=== PATIENT | male | born 1975 | race Caucasian/White ===

== ENCOUNTER 2022-10-27 10:55 | Outpatient (CLI) | payer OTHER, SELFPAY ==
--- NOTE | 2022-10-27 10:27 | EST_ITS ---
Patient Info Name: Dariusz Kelly Age: 47 years : 1975 Gender: Male Ht: 72 in Wt: 220 lbs BSA: 2.27 m2 HR: 64 bpm BP: 124 / 82 mmHg Heart Rhythm: Sinus Rhythm Exam Date: 10/27/2022 11:37 AM Exam Location: [facility] Stress Patient Status: Outpatient Admit Date: 10/27/2022 Staff Ordering Physician: Kacy Hunter NP Attending Provider: Kacy Hunter NP Exercise Technologist: Dorina Acevedo CT Exercise Physician: Handy Downey DO Exam Type: CA stress test treadmill Study Info Indications R55 - Syncope and collapse A treadmill exercise stress test was performed. Summary 1. 1. Negative Fredy exercise stress test for ischemic ST changes by ECG criteria. 2. 2. Good functional capacity, achieving 10.9 METs of workload. 3. 3. Appropriate HR response to exercise. 4. 4. Appropriate HR recovery at 1 minute post exercise. 5. 5. No imaging with stress testing. 6. 6. Patient informed of the above results. Protocol: Fredy Stress ECG Details Stage: REST Duration (min): 1 min : 13 sec Speed (mph): 0.0 Grade (%): 0 HR (bpm): 64 SBP (mmHg): 124 DBP (mmHg): 82 METS: --- Stage: REST Duration (min): 9 min : 26 sec Speed (mph): 0.0 Grade (%): 0 HR (bpm): 66 SBP (mmHg): 124 DBP (mmHg): 82 METS: --- Stage: STAGE 1 Duration (min): 1 min : 0 sec Speed (mph): 1.7 Grade (%): 10 HR (bpm): 83 SBP (mmHg): 124 DBP (mmHg): 82 METS: --- Stage: STAGE 1 Duration (min): 2 min : 0 sec Speed (mph): 1.7 Grade (%): 10 HR (bpm): 86 SBP (mmHg): 124 DBP (mmHg): 82 METS: --- Stage: STAGE 1 Duration (min): 3 min : 0 sec Speed (mph): 1.7 Grade (%): 10 HR (bpm): 79 SBP (mmHg): 135 DBP (mmHg): 89 METS: --- Stage: STAGE 2 Duration (min): 1 min : 0 sec Speed (mph): 2.5 Grade (%): 12 HR (bpm): 87 SBP (mmHg): 135 DBP (mmHg): 89 METS: --- Stage: STAGE 2 Duration (min): 2 min : 0 sec Speed (mph): 2.5 Grade (%): 12 HR (bpm): 91 SBP (mmHg): 146 DBP (mmHg): 101 METS: --- Stage: STAGE 2 Duration (min): 3 min : 0 sec Speed (mph): 2.5 Grade (%): 12 HR (bpm): 92 SBP (mmHg): 146 DBP (mmHg): 101 METS: --- Stage: STAGE 3 Duration (min): 1 min : 0 sec Speed (mph): 3.4 Grade (%): 14 HR (bpm): 110 SBP (mmHg): 146 DBP (mmHg): 101 METS: --- Stage: STAGE 3 Duration (min): 2 min : 0 sec Speed (mph): 3.4 Grade (%): 14 HR (bpm): 126 SBP (mmHg): 229 DBP (mmHg): 81 METS: --- Stage: STAGE 3 Duration (min): 3 min : 0 sec Speed (mph): 3.4 Grade (%): 14 HR (bpm): 138 SBP (mmHg): 184 DBP (mmHg): 66 METS: --- Stage: STAGE 4 Duration (min): 0 min : 25 sec Speed (mph): 4.2 Grade (%): 16 HR (bpm): 145 SBP (mmHg): 184 DBP (mmHg): 66 METS: ---
== END 2022-10-27 10:56 | disposition home or self-care (01) ==
PROVIDERS: PCP Family Medicine; Visit Provider Nurse Practitioner Family
DX: R55 Syncope and collapse (principal)
CPT/HCPCS: 36415; 80053; 80061; 84443; 85025; 93017

== ENCOUNTER 2022-10-27 12:31 | Outpatient (CLI) | payer OTHER, SELFPAY ==
[2022-10-27 18:17] LABS: Basophils Absolute Auto 0.1 K/mm3 (0.0-0.1); Eosinophils Absolute Auto 0.4 K/mm3 (0-0.3); Eosinophils Percent Auto 3.7 % (0-4.4); Hematocrit 43.1 % (42.0-52.0); Hemoglobin 14.7 g/dL (14.0-18.0); Immature Granulocyte Absolute 0.03 K/mm3 (0.00-0.031); Immature Granulocyte Percent A 0.3 % (0-0.5); Lymphocytes Absolute Auto 2.54 K/mm3 (0.9-3.2); Lymphocytes Percent Auto 24.7 % (18.3-44.2); Mean Corpuscular HGB Conc 34.1 g/dl (32-36); Mean Corpuscular Hemoglobin 30.9 pg (26-34); Mean Corpuscular Volume 90.7 fl (80-100); Mean Platelet Volume 10.5 fl (7.4-10.4); Monocytes Absolute Auto 1.1 K/mm3 (0.1-0.6); Monocytes Percent Auto 10.7 % (2.6-8.5); Neutrophils Absolute Auto 6.1 K/mm3 (1.3-6.7); Neutrophils Percent Auto 59.6 % (45.5-73.1); Platelet Count Result 256 k/mm3 (150-375); Red Blood Count 4.75 M/mm3 (4.6-6.20); Red Cell Distribution Width 12.7 % (11.5-14.5); White Blood Count 10.3 K/mm3 (4.5-10.0)
[2022-10-27 18:59] LABS: Alanine Aminotransferase 20 U/L (6-50); Albumin Level 4.3 g/dL (3.5-5.1); Alkaline Phosphatase 67 U/L (38-126); Anion Gap 6 mmol/L (8-16); Aspartate Amino Transferase 23 U/L (17-59); Bilirubin,Total 0.6 mg/dL (0.2-1.3); Blood Urea Nitrogen 11 mg/dL (9-20); Carbon Dioxide 30 mmol/L (22-30); Chloride 99 mmol/L (98-107); Cholesterol 248 mg/dL (0-200); Estimated Glomerular Filt Rate > 60; Glucose 95 mg/dL (65-110); HDL Direct 62 mg/dL; Potassium 3.8 mmol/L (3.4-5.0); Sodium 135 mmol/L (137-145); Triglycerides 215 mg/dL (<150)
[2022-10-27 19:09] LABS: LDL Cholesterol Direct 143 mg/dL
== END 2022-10-27 12:32 | disposition home or self-care (01) ==
LOC: ANHGOSHLAB 12:33
PROVIDERS: PCP Family Medicine; Visit Provider Nurse Practitioner Family
DX: R55 Syncope and collapse (principal); Z13.220 Encounter for screening for lipoid disorders
CPT/HCPCS: 36415; 80053; 80061; 84443; 85025

== ENCOUNTER 2022-11-30 11:34 | Outpatient (CLI) | payer OTHER, SELFPAY ==
--- NOTE | ~2022-11-30 | XR_ITS ---
Lumbosacral Spine: AP and lateral views Clinical History: Pain Findings: The normal lordotic curve is maintained. No fracture seen. There is moderate degenerative d isc narrowing at L5-S1. There is minimal grade 1 retrolisthesis of L5 over S1. The sacroiliac joints are normally outlined. Impression: Minimal grade 1 retrolisthesis of L5 over S1. Degenerative disc narrowing at L5-S1. Reviewed, dictated and finalized at location . Impression: Minimal grade 1 retrolisthesis of L5 over S1. Degenerative disc narrowing at L5-S1.
== END 2022-11-30 11:35 | disposition home or self-care (01) ==
PROVIDERS: PCP Family Medicine; Visit Provider Nurse Practitioner Family
DX: M54.16 Radiculopathy, lumbar region (principal)
CPT/HCPCS: 72100

== ENCOUNTER 2023-02-14 16:01 | Outpatient (CLI) | payer OTHER, SELFPAY ==
--- NOTE | ~2023-02-14 | XR_ITS ---
EXAM: XR lumbar spine 6V w bending DATE: 02/14/2023 16:31 HISTORY: known spondylolisthesis . COMPARISON: 11/30/2022. FINDINGS: 5 nonrib-bearing lumbar-type vertebral bodies. No pars defect. Pedicles intact. Grade 1 re trolisthesis at L1-2 and L5-S1, both reduce slightly in flexion. Stable mild anterior wedge deformity of multiple vertebral bodies at the thoracolumbar junction, may be physiologic. Multilevel disc spac e narrowing and marginal osteophytosis, severe at L5-S1. Multilevel mild lower lumbar facet sclerosis . No fracture or dislocation. IMPRESSION: Dynamic grade 1 retrolistheses at L1-2 and L5-S1. Severe degenerative disc disease at L5- S1. Reviewed, dictated and finalized at location K. IMPRESSION: Dynamic grade 1 retrolistheses at L1-2 and L5-S1. Severe degenerati ve disc disease at L5-S1.
== END 2023-02-14 16:02 | disposition home or self-care (01) ==
PROVIDERS: PCP Family Medicine; Visit Provider Anesthesiology Pain Medicine
DX: M43.17 Spondylolisthesis, lumbosacral region (principal); M47.817 Spondylosis without myelopathy or radiculopathy, lumbosacral region; M51.37 Other intervertebral disc degeneration, lumbosacral region
CPT/HCPCS: 72114

== ENCOUNTER 2023-02-26 14:30 | Outpatient (RCR) | payer OTHER, SELFPAY ==
--- NOTE | 2023-01-04 08:46 | PTOPEVAL1 ---
Assessment and note entered by Carissa Diaz, PT Evaluation Information Assessment Status Evaluation Diagnosis dorsalgia, spondylosis, spondylolisthesis, radiculopathy Subjective Information Has broken back several times, has had pain at least 17 years. 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 Pain management Dr. Limon. Was referred to therapy and provided Tramadol. Was loosing consciousness, went to emergency room and reports person there said his pain was causing loss of consciousness. Reports the hand upside down machine states this works sometimes but then as soon as does something pain returns. Laying flat makes pain feel better. reports thinking the cardiogenic syncope came on because of his pain. Reported Pain Level Pain Score 6: Self Report Additional Pain Score Comments stepping down to hard, pushing brakes to quick/ hard, climbing down steps that are tall all increase pain Assessment PT Clinical Summary Pt presents w/ history of back pain and multiple related diagnosis. Evaluation pt is listless and moving/shifting often, diaphoretic at rest, demo's abnormal gait pattern appearing guarded with motion. Demos decreased lumbopelvic strength of gluteal musculature and poor core strength and awareness. Pt also demo's abnormal postures and curvature of the spine in sitting and standing. Presentation also suggestive of lumbar and lumbosacral instability. Thus patient will benefit from physical therapy to address deficits, educate patient in appropriate muscle awareness/ activation, postural changes, improve gait, decrease pain and improve function. Plan of Care Interventions Electrical Stimulation,Gait Training,Hot Pack/Cold Pack,Manual Therapy,Neuro Re-education,Patient/ Caregiver Educati,Therapeutic Activities, Therapeutic Exercise PT Services Indicated Yes Treatment Frequency and 2x weekly x 4 weeks. Duration These treatments will address the objective and functional deficits as defined above. The patient will be advanced safely and appropriately in order for the patient to progress towards his/her prior level of function. Additional exercises will be introduced and as well as a comprehensive home exercise program upon discharge, if needed, ?to ensure carryover of functional gains achieved in the clini
--- NOTE | 2023-01-04 08:46 | OPREHPOC ---
Outpatient Therapy Plan of Care This is a Multidisciplinary Plan of Care that may contain components documented by all disciplines (PT, OT, and ST.) PT Problem 1 PT Problem #1 Knowledge Deficit PT Goal 1 Goal Pt will be indpendent in in home exercise program Target Visit 8 PT Goal 2 Goal Pt will verbalize understanding of importance of posture in improving discomfort. Target Visit 8 PT Problem 2 PT Problem #2 Pain PT Goal 1 Goal Pt will report lowest rating at 0/10 Target Visit 8 PT Goal 2 Goal Pt will report greatest pain at 5/10 Target Visit 8 PT Problem 3 PT Problem #3 Impaired Gait PT Goal 1 Goal Pt will demo improved gait with less guarding Target Visit 8 PT Problem 4 PT Problem #4 Impaired Strength PT Goal 1 Goal Pt will demo 4/5 bilat LEs Target Visit 8
--- NOTE | 2023-01-31 16:49 | PTOPPROG ---
Assessment and note entered by Carissa Diaz, PT Assessment Status Progress Report Diagnosis dorsalgia, spondylosis, spondylolisthesis, radiculopathy Subjective Information Pt reports end of last week and this weekend was pretty bad. Hasn't been shea to sit up much, just laying flat on his back. States when he would hurt whenever he would move. Has not recieved brace yet, is waiting for insurance to approve it. Has not tried to use ice or did his exercises tihs weekend to try to fix this. Reports when he is in these episodes he isn't cognitive about fixing issues. States is also having pain in his head with coughing and sneezing, states is waiting for neurology consult for this. Pt reports left knee 'popped out of socket going down the stairs the other day. States it goes back in on it's own. States this has happened before, knee swelled up really big then got better. Assessment PT Clinical Summary Pt presents with complaints of back pain. During therapy sessions, pt has been improving in tolerance of exercises however during formal testing today he reports he's had a bad weekend and increased pain. Pt mobility and presentation inconsistent with verbal reports during today's session as demo'd by heart rate remaining below 80 BPM during evaluation and upon sitting. Also hand held dynamometer testing inconsistencies and cogwheeling with muscle testing not seen previously suggestive of pt effort deficit today. Pt also may not understand the numerical pain rating system as reports of other injuries suggest decreased knowledge of musculoskeletal workings and injury. Thus it is difficult to assess in this progress note pt progress overall. Prior daily notes suggest some improvements being made overall and pt reports back brace he tried on improved his pain significantly. Presentation cont to demo instability type deficits, thus pt will benefit from continued therapy for a time to attempt to increase strengthening and stability exercises to improve discomfort and function. Plan of Care Interventions Electrical Stimulation,Gait Training,Hot Pack/Cold Pack,Manual Therapy,Neuro Re-education,Patient/
--- NOTE | 2023-02-08 15:03 | PCPTNOTE ---
Patient's called & cancelled scheduled appointment this date due to pt not doing well today .
--- NOTE | 2023-02-23 14:47 | PCPTNOTE ---
Patient's called & cancelled 25 min prior to scheduled appointment this date stating pt had just had a syncopal episode and didn't feel well. This is patient's third cancellation.
--- NOTE | 2023-02-26 15:35 | PTOPDC ---
Assessment and note entered by Carissa Diaz, PT Assessment Status Discharge Diagnosis dorsalgia, spondylosis, spondylolisthesis, radiculopathy Subjective Information Pt reports Dr. Limon states could do a sqvy-oh-csik for his brace. Reports Dr. Limon said that when patient turns his vertebra come apart . Reports thinks brace will be helpful with riding in vehicles so is not jarring me all the time and with sitting upright. Pt reports wasn't able to get out of bed Sunday which is why he missed therapy because of the pain . When I loose consciousness I start falling down . Self-perceived improvement: doesn't give a percent , feels like it's getting worse. States he feels like he is using muscle mass. States has been about the same. Reports he starts doing things, when pain comes then I get all white, loose blood pressure in my legs Reports didn't wear pressure stockings today , states usually wears them when comes to therapy. Reports when does his exercises (pelvic tilts) his hip is dislocating itself in the middle, no left or right but that when he lays flat it pops back in . Reported Pain Level Pain Score 7: Self Report Assessment PT Clinical Summary Pt has only attended therapy 50% of the time this second plan of care. Demo's improved lumbar ROM overall with formal and observation in [facility]. However Evaluation shows inconsistencies with formal ROM testing and pt mobility compared to formal testing. Pt does continue to demo strength and stability deficits, gait abnormalities at times, and reports of feeling feint. Pt would benefit from continued strengthening if was able to participate consistently and with full effort but is currently limited due to reports of pain and syncope. Thus pt is being dischargd from therapy at this time due to lack of significant progress.
== END 2023-02-26 15:39 | disposition home or self-care (01) ==
LOC: ANHHIPT 14:30
PROVIDERS: PCP Family Medicine; Visit Provider Anesthesiology Pain Medicine
DX: M54.9 Dorsalgia, unspecified (principal); M47.817 Spondylosis without myelopathy or radiculopathy, lumbosacral region; M43.17 Spondylolisthesis, lumbosacral region; M54.16 Radiculopathy, lumbar region
CPT/HCPCS: 97014; 97110; 97140; 97162; 97750; G0283

== ENCOUNTER 2023-11-15 12:42 | Outpatient (CLI) | payer OTHER, SELFPAY ==
[2023-11-15 13:12] LABS: Basophils Absolute Auto 0.1 K/mm3 (0.0-0.1); Eosinophils Absolute Auto 0.4 K/mm3 (0-0.3); Eosinophils Percent Auto 3.1 % (0-4.4); Hematocrit 42.7 % (42.0-52.0); Hemoglobin 14.7 g/dL (14.0-18.0); Immature Granulocyte Absolute 0.04 K/mm3 (0.00-0.031); Immature Granulocyte Percent A 0.3 % (0-0.5); Lymphocytes Absolute Auto 3.03 K/mm3 (0.9-3.2); Lymphocytes Percent Auto 26.5 % (18.3-44.2); Mean Corpuscular HGB Conc 34.4 g/dl (32-36); Mean Corpuscular Hemoglobin 30.9 pg (26-34); Mean Corpuscular Volume 89.9 fl (80-100); Mean Platelet Volume 9.9 fl (7.4-10.4); Monocytes Absolute Auto 1.4 K/mm3 (0.1-0.6); Monocytes Percent Auto 11.9 % (2.6-8.5); Neutrophils Absolute Auto 6.5 K/mm3 (1.3-6.7); Neutrophils Percent Auto 57.2 % (45.5-73.1); Platelet Count Result 285 k/mm3 (150-375); Red Blood Count 4.75 M/mm3 (4.6-6.20); Red Cell Distribution Width 12.5 % (11.5-14.5); White Blood Count 11.4 K/mm3 (4.5-10.0)
[2023-11-15 13:26] LABS: Alanine Aminotransferase 17 U/L (6-50); Albumin Level 4.9 g/dL (3.5-5.1); Alkaline Phosphatase 78 U/L (38-126); Anion Gap 8 mmol/L (4-12); Aspartate Amino Transferase 23 U/L (17-59); Bilirubin,Total 0.8 mg/dL (0.2-1.3); Blood Urea Nitrogen 8 mg/dL (9-20); Calcium 9.7 mg/dL (8.4-10.2); Carbon Dioxide 28 mmol/L (22-30); Chloride 103 mmol/L (98-107); Cholesterol 235 mg/dL (0-200); Estimated Glomerular Filt Rate > 60; Glucose 97 mg/dL (65-110); HDL Direct 53 mg/dL; Potassium 4.1 mmol/L (3.4-5.0); Sodium 139 mmol/L (137-145); Triglycerides 169 mg/dL (<150)
[2023-11-15 13:37] LABS: LDL Cholesterol Direct 152 mg/dL
[2023-11-15 14:17] LABS: Thyroid Stimulating Hormone Reflex 0.885 uIU/mL (0.465-4.68)
== END 2023-11-15 12:43 | disposition home or self-care (01) ==
LOC: ANHLAB 12:43
PROVIDERS: PCP Family Medicine; Visit Provider Internal Medicine Cardiovascular Disease
DX: R55 Syncope and collapse (principal)
CPT/HCPCS: 36415; 80053; 80061; 84443; 85025

== ENCOUNTER 2024-07-23 01:34 | Day surgery (SDC) | payer OTHER, SELFPAY ==
[2024-06-30 15:10] VITALS: BMI 33.6
[2024-07-23 08:48] VITALS: BP 130/82; PULSE 85; RESP 18; TEMP 36.2; O2SAT 99
[2024-07-23] MEDS: LACTATED RINGERS 1,000 ML 150 ML IV CONT (08:59)
--- NOTE | 2024-07-23 09:37 | PM.IMHP ---
H&P: HPI History of Present Illness Date/Time: 07/23/24 09:37 Chief Complaint: Screening colonoscopy Narrative: This is the patient's first colonoscopy. There are no GI symptoms and there is no family history of colorectal cancer. Review of Systems Review of Systems: All systems reviewed & are unremarkable except as noted in HPI and below PMFSH Past Medical History Medical History Asthma DDD (degenerative disc disease) Depression Former smoker Quit 10/2019 Mixed hyperlipidemia Neurocardiogenic syncope Neurogenic orthostatic hypotension Peripheral neuropathy Surgical History Surgical History H/O lumpectomy (~2020) back History of placement of ear tubes Social History Social History Social History: , lives with and daughter. HVAC worker. Smoking packs per day: 1 Smoking cigarettes per day: 20.0 Years smoked: 20 Smoking pack-years: 20.00 Smoking status: Former smoker Tobacco type: cigarettes Smoking end date: 10/21/19 Alcohol intake: unknown Substance use: current Substance use type: marijuana Other substance usage details: edible daily for pain Do You Feel Safe in your Home?: Yes Lack of Transportation: YES Lack of Food: Sometimes True Current Housing: I Have Housing Concerned About Future Housing: YES Difficulty Paying Gas/Electric Bills: YES Difficulty Paying for Meds: YES Currently Unemployed: No Education: Trade/Vocational Certificate Difficulty w/ Childcare or Family Care: No Living arrangements: with family Occupation/Education: unemployed Gender identity (if verbalized by the patient): Male Sexual Orientation (if Verbalized by the Patient): Straight or Heterosexual Spiritual care concerns: No Agree to blood products: Yes Meds Home Medications and Allergies Home Medications ?Medication ?Instructions ?Recorded ?Confirmed ?Type comp.stocking,thigh,long,large #6 ea 11/01/22 05/06/24 Rx diclofenac sodium 1 % topical gel 4 g topical QID PRN low back pain 12/19/22 06/30/24 Rx #5 tubes atorvastatin 40 mg tablet 40 mg PO DAILY #90 tabs 11/15/23 07/23/24 Rx fludrocortisone 0.1 mg tablet See Rx Instructions .Route 03/18/24 07/23/24 Rx .COMPLEX #30 tabs midodrine 10 mg tablet See Rx Instructions .Route 03/18/24 07/23/24 Rx .COMPLEX #90 tabs trazodone 50 mg tablet 50 mg PO QHS PRN sleep #30 tabs 05/06/24 06/30/24 Rx sildenafil 50 mg tablet See Rx Instructions .Route 05/19/24 06/30/24 Rx .COMPLEX #30 tabs carbidopa 25 mg-levodopa 100 mg 1 tablet PO TID 06/30/24 07/23/24 History tablet pregabalin 25 mg capsule 75 mg PO BID 06/30/24 07/23/24 History duloxetine 60 mg capsule,delayed 60 mg PO BID #180 caps 07/04/24 07/23/24 Rx release cyclobenzaprine 10 mg tablet 10 mg PO TID PRN muscle spasm #90 07/17/24 07/23/24 Rx tabs ibuprofen 800 mg tablet 800 mg PO TID PRN pain #90 tabs 07/18/24 07/23/24 Rx Allergies Allergy/AdvReac Type Severity Reaction Status Date / Time No Known Allergies Allergy Verified 07/23/24 08:46 Vital Signs Vital Signs - 24 hr 07/23/24 08:48 Temperature 97.1 F L Pulse Rate 85 Respiratory Rate 18 Blood Pressure 130/82 Pulse Oximetry 99 Oxygen Delivery Room Air Exam Const: General: cooperative and healthy appearing Resp: Effort & Inspection: normal respiratory effort and able to speak in complete sentences Auscultation: clear to auscultation bilaterally Cardio: Rate: regular rate Rhythm: regular rhythm GI: Inspection: normal to inspection GI Palp: No No hepatosplenomegaly present Auscultation: normal bowel sounds Rectal Exam: deferred Skin: General skin exam: normal color Psych: Appearance: grossly normal Mental Status: mental status grossly normal Assessment and Plan Assessment and plan (1) Encounter for screening colonoscopy: Code(s): Z12.11 - Encounter for screening for malignant neoplasm of colon Status: Acute Assessment and Plan: The patient is deemed a good candidate for the procedure. Consent signed. Will proceed.
--- NOTE | 2024-07-23 09:39 | WPDANESEPPF ---
Anes - Initial Pre Proc Eval Procedure: Operation Date: 07/23/24 09:30 Proposed Procedures p Screening Colonoscopy - Raghavendra Byrnes MD Date/Time: 07/23/24 09:39 Surgeon: Raghavendra Byrnes MD Pre Op Diagnosis: screening malignanat neoplasm colon Patient Data Age: 49 Gender: M Height: 1.83 m Weight: 112.3 kg Last Vital Signs Temp 36.2 C L 07/23/24 08:48 Pulse 85 07/23/24 08:48 Resp 18 07/23/24 08:48 BP 130/82 07/23/24 08:48 Pulse Ox 99 07/23/24 08:48 O2 Del Method Room Air 07/23/24 08:48 Allergies Allergy/AdvReac Type Severity Reaction Status Date / Time No Known Allergies Allergy Verified 07/23/24 08:46 Home Medications ?Medication ?Instructions ?Recorded ?Confirmed ?Type comp.stocking,thigh,long,large #6 ea 11/01/22 05/06/24 Rx diclofenac sodium 1 % topical gel 4 g topical QID PRN low back pain 12/19/22 06/30/24 Rx #5 tubes atorvastatin 40 mg tablet 40 mg PO DAILY #90 tabs 11/15/23 07/23/24 Rx fludrocortisone 0.1 mg tablet See Rx Instructions .Route 03/18/24 07/23/24 Rx .COMPLEX #30 tabs midodrine 10 mg tablet See Rx Instructions .Route 03/18/24 07/23/24 Rx .COMPLEX #90 tabs trazodone 50 mg tablet 50 mg PO QHS PRN sleep #30 tabs 05/06/24 06/30/24 Rx sildenafil 50 mg tablet See Rx Instructions .Route 05/19/24 06/30/24 Rx .COMPLEX #30 tabs carbidopa 25 mg-levodopa 100 mg 1 tablet PO TID 06/30/24 07/23/24 History tablet pregabalin 25 mg capsule 75 mg PO BID 06/30/24 07/23/24 History duloxetine 60 mg capsule,delayed 60 mg PO BID #180 caps 07/04/24 07/23/24 Rx release cyclobenzaprine 10 mg tablet 10 mg PO TID PRN muscle spasm #90 07/17/24 07/23/24 Rx tabs ibuprofen 800 mg tablet 800 mg PO TID PRN pain #90 tabs 07/18/24 07/23/24 Rx Patient hx anesthesia problems: none Family hx anesthesia problems: none Results Review: All pre-operative results and documents have been reviewed as part of the pre-operative evaluation. 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 Smoking packs per day: 1 Smoking cigarettes per day: 20.0 Years smoked: 20 Smoking pack-years: 20.00 Smoking status: Former smoker Tobacco type: cigarettes Smoking end date: 10/21/19 Alcohol intake: unknown Substance use: current Substance use type: marijuana Other substance usage details: edible daily for pain Do You Feel Safe in your Home?: Yes Lack of Transportation: YES Lack of Food: Sometimes True Current Housing: I Have Housing Concerned About Future Housing: YES Difficulty Paying Gas/Electric Bills: YES Difficulty Paying for Meds: YES Currently Unemployed: No Education: Trade/Vocational Certificate Difficulty w/ Childcare or Family Care: No Living arrangements: with family Occupation/Education: unemployed Gender identity (if verbalized by the patient): Male Sexual Orientation (if Verbalized by the Patient): Straight or Heterosexual Spiritual care concerns: No Agree to blood products: Yes Anes - Eval Final PreProcedure Day of Procedure 07/23/24 09:39 Patient weight: obese Heart: regular rate and rhythm Lungs: wheezes (left) Airway: Mallampati scale class II and other (missing teeth) Neurological: alert and oriented Last oral intake: >/= 8 hours ASA classification: III Emergent: no Anesthetic plan: proceed Anesthesia type and monitoring: general GIVS and standard monitoring Results Review: All pre-operative results and documents have been reviewed as part of the pre-operative evaluation. Informed Consent: The patient's anesthetic plan and its attendant risks and benefits were discussed with the patient/family/POA. Questions were solicited and answers provided to the satisfaction of the patient/family/POA.
[2024-07-23 09:59] VITALS: BP 119/81; PULSE 85; RESP 14; O2SAT 95
[2024-07-23 10:09] VITALS: BP 103/74; PULSE 78; RESP 18; O2SAT 96
[2024-07-23 10:19] VITALS: BP 122/77; PULSE 70; RESP 20; O2SAT 96
== END 2024-07-23 10:29 | disposition home or self-care (01) ==
PROVIDERS: PCP Family Medicine; Visit Provider Internal Medicine Gastroenterology
PROC: 0DJD8ZZ Inspection of Lower Intestinal Tract, Via Natural or Artificial Opening Endoscopic (ICD-10-PCS; CPT 45378; principal; 2024-07-23 09:30)
DX: Z12.11 Encounter for screening for malignant neoplasm of colon (principal); D12.4 Benign neoplasm of descending colon; J45.909 Unspecified asthma, uncomplicated; E78.2 Mixed hyperlipidemia; F32.A Depression, unspecified; G90.3 Multi-system degeneration of the autonomic nervous system; F12.90 Cannabis use, unspecified, uncomplicated; E66.9 Obesity, unspecified; Z68.33 Body mass index [BMI] 33.0-33.9, adult; Z79.1 Long term (current) use of non-steroidal anti-inflammatories (NSAID); Z98.890 Other specified postprocedural states; Z87.891 Personal history of nicotine dependence
CPT/HCPCS: 45385; 88305; J2003; J2704; J7120